=== PATIENT | female | born 1955 | race Caucasian/White ===

== ENCOUNTER 2017-01-29 15:19 | Emergency (ER) | payer OTHER ==
[2017-01-29 15:36] VITALS: RESP 18; TEMP 98.3; O2SAT 98
[2017-01-29] MEDS ORDERED: Sodium Chloride 0.9% 1,000 ML IV STA (16:15)
--- NOTE | 2017-01-29 16:20 | ED PDOC ---
Arrival/HPI - General Chief Complaint: GI Problem Time Seen by Provider: 01/29/17 15:24 Historian: Patient, Family - History of Present Illness Narrative History of Present Illness (Text): 01/29/17 16:05 A 61 year old female, whose past medical history includes diabetes, hypertension , hypothyroidism, presents to the emergency department after vomiting 6 times this morning. The patient states when she woke up this morning she made herself some tea and while drinking the tea she began to throw up. The patient reports she also has nausea, headache, abdominal pain, and feels dizzy. She denies any chest pain, back pain, fever, vision changes, hearing changes, numbness, weakness, diarrhea, or any other complaints at this time. The patient's daughter reports that the patient has had a similar episode in the past, but it was much worse than it is today. Time/Duration: 4-6 hours Symptom Onset: Sudden Symptom Course: Unchanged Activities at Onset: Light Context: Home Past Medical History - Provider Review Nursing Documentation Reviewed: Yes - Infectious Disease Hx of Infectious Diseases: None - Cardiac Hx Cardiac Disorders: Yes Hx Hypertension: Yes - Pulmonary Hx Respiratory Disorders: No - Neurological Hx Neurological Disorder: No - HEENT Hx HEENT Disorder: No - Renal Hx Renal Disorder: No - Endocrine/Metabolic Hx Endocrine Disorders: Yes Hx Diabetes Mellitus Type 2: Yes Hx Hypothyroidism: Yes - Hematological/Oncological Hx Blood Disorders: No - Integumentary Hx Cedeno: No - Musculoskeletal/Rheumatological Hx Falls: No - Gastrointestinal Hx Gastrointestinal Disorders: Yes Hx Colitis: Yes - Genitourinary/Gynecological Hx Genitourinary Disorders: No - Psychiatric Hx Psychophysiologic Disorder: No Hx Substance Use: No - Anesthesia Hx Anesthesia: No Family/Social History - Physician Review Nursing Documentation Reviewed: Yes Family/Social History: No Known Family HX Smoking Status: Never Smoked Hx Alcohol Use: No Hx Substance Use: No Allergies/Home Meds Allergies/Adverse Reactions: Allergies atropine Allergy (Verified 01/29/17 15:35) ANAPHYLAXIS Sulfa (Sulfonamide Antibiotics) Allergy (Verified 01/29/17 15:24) ANAPHYLAXIS Home Medications: Home Meds Medication Instructions Recorded Confirmed Levothyroxine [Synthroid] 75 mcg PO DAILY 01/29/17 01/29/17 Liraglutide [Victoza 3-Bucky] 1.8 mg SQ DAILY 01/29/17 01/29/17 Lisinopril [Zestril] 2.5 mg PO BID 01/29/17 01/29/17 Review of Systems - Physician Review All systems were reviewed & negative as marked: Yes - Review of Systems Constitutional: absent: Fevers Cardiovascular: absent: Chest Pain Gastrointestinal: Abdominal Pain, Nausea, Vomiting. absent: Diarrhea Musculoskeletal: absent: Back Pain Neurological: Headache Physical Exam Vital Signs Reviewed: Yes Vital Signs Temp Pulse Resp BP Pulse Ox 01/29/17 17:02 94 H 18 145/74 98 01/29/17 15:34 98.3 F 100 H 18 148/78 98 Temperature: Afebrile Blood Pressure: Normal Pulse: Tachycardic Respiratory Rate: Normal Appearance: Positive for: Well-Appearing, Non-Toxic, Comfortable Pain Distress: None Mental Status: Positive for: Alert and Oriented X 3 Finger Stick Blood Glucose: 97 - Systems Exam Head: Present: Atraumatic, Normocephalic Pupils: Present: PERRL Extroacular Muscles: Present: EOMI Conjunctiva: Present: Normal Mouth: Present: Dry. No: Normal Lips (dry lips) Neck: Present: Normal Range of Motion Respiratory/Chest: Present: Clear to Auscultation, Good Air Exchange. No: Respiratory Distress, Accessory Muscle Use Cardiovascular: Present: Regular Rate and Rhythm, Normal S1, S2. No: Murmurs Abdomen: Present: Tenderness (epigastric and RUQ tenderness ), Normal Bowel Sounds, Other (patient is actively vomiting; negative Garcia's sign). No: Distention Back: Present: Normal Inspection Upper Extremity: Present: Normal Inspection. No: Cyanosis, Edema Lower Extremity: Present: Normal Inspection. No: Edema Neurological: Present: GCS=15, CN II-XII Intact, Speech Normal Skin: Present: Warm, Dry, Normal Color. No: Rashes Psychiatric: Present: Alert, Oriented x 3, Normal Insight, Normal Concentration Medical Decision Making ED Course and Treatment: 01/29/17 16:21 Impression: A 61 year old female with nausea and vomiting Differential Diagnosis included but are not limited to: Cholecystitis vs Biliary colic vs. Pancreatitis Plan: -- Abdomen Complete Ultrasound -- VBG -- Labs -- Pepcid, Zofran, IV fluids -- Reassess and disposition Progress Notes: 01/29/17 18:40 Abdominal Ultrasound Nurse Practitioner Hospitalist : Eden Currie MD Report Date : 01/29/2017 17:36:02 HISTORY: ruq abd pain r/o cholecystitis COMPARISON: None available. FINDINGS: LIVER:Measures 16.9 cm in sagittal dimension. Echogenic liver may be seen in setting of hepatic parenchymal disease or fatty infiltration. No focal hepatic mass identified. The main portal vein appears patent with normal directional flow. No intrahepatic bile duct dilatation. GALLBLADDER:No gallstones. No gallbladder wall thickening. Negative sonographic Garcia's sign as assessed by the retinal angiographer. COMMON BILE DUCT:Measures 3 mm. PANCREAS:Not well visualized. RIGHT KIDNEY:Measures 10.5 x 5.3 x 5.7cm. No obstructing calculus or hydronephrosis identified. LEFT KIDNEY:Measures 9.9 x 6.3 x 5.5cm. No obstructing calculus or hydronephrosis identified. SPLEEN:Splenectomy. AORTA:Limited views appear unremarkable. IVC:Limited views appear unremarkable. OTHER FINDINGS:None. IMPRESSION: Echogenic liver may be seen in setting of hepatic parenchymal disease or fatty infiltration. Splenomegaly 01/29/17 19:19 Patient on reevaluation felt completely better. She was able to tolerate PO fluids and food. Abdomen is soft, NT, ND, BS x 4. She was walking the ED without any dizziness or lightheadedness. She was given a copy of her US report. She and her daughter state that she has good follow up with her doctor in [place]. She was given Zofran and Zantac Rx on discharged. She was advised to return to the ED if symptoms worsen or any other concern. - Lab Interpretations Lab Results: 01/29/17 16:20 01/29/17 16:20 Lab Results 01/29/17 16:37: pO2 116 H, VBG pH 7.44 H, VBG pCO2 46.0, VBG HCO3 31.2 H, VBG Total CO2 32.6 H, VBG O2 Sat (Calc) 97.3 H, VBG Base Excess 6.1 H, VBG Potassium 3.7, Glucose 94, Lactate 1.1, FiO2 21.0, Sodium 140.0, Chloride 103.0 , Venous Blood Potassium 3.7 01/29/17 16:20: Sodium 140, Potassium 4.3, Chloride 100, Carbon Dioxide 30, Anion Gap 14, BUN 11, Creatinine 0.5 L, Est GFR ( Amer) > 60, Est GFR ( Non-Af Amer) > 60, Random Glucose 98, Calcium 10.0, Total Bilirubin 0.9, AST 35 , ALT 36, Alkaline Phosphatase 61, Total Protein 9.0 H, Albumin 4.4, Globulin 4.6, Albumin/Globulin Ratio 0.9 L, Lipase 192 01/29/17 16:20: PT 14.0 H, INR 1.28 H, APTT 24.3 L 01/29/17 16:20: WBC 12.5 H, RBC 4.92, Hgb 11.1 L, Hct 35.0 L, MCV 71.1 L, MCH 22.6 L, MCHC 31.7, RDW 16.1 H, Plt Count 570 H, MPV 9.5, Gran % 69.4 H, Lymph % (Auto) 23.3, [place] % (Auto) 6.3 H, Eos % (Auto) 0.7 L, Baso % (Auto) 0.3, Gran # 8.70 H, Lymph # 2.9, Cidra # 0.8 H, Eos # 0.1, Baso # 0.04 - RAD Interpretation Radiology Orders: 01/29/17 16:15 ABDOMEN COMPLETE [US] Stat - Medication Orders Current Medication Orders: Discontinued Medications Famotidine (Pepcid) 20 mg IVP STAT STA Stop: 01/29/17 16:16 Last Admin: 01/29/17 16:29 Dose: 20 mg IVP Administration Document 01/29/17 16:29 SE (Rec: 01/29/17 16:29 [id number]) Charges for Administration # of IVP Administrations 1 Sodium Chloride (Sodium Chloride 0.9%) 1,000 mls @ 1,000 mls/hr IV .Q1H STA Stop: 01/29/17 17:14 Last Admin: 01/29/17 16:29 Dose: 1,000 mls/hr eMAR Start Stop Document 01/29/17 16:29 SE (Rec: 01/29/17 16:29 [id number]) Intravenous Solution Start Date 01/29/17 Start Time 16:29 Ondansetron HCl (Zofran Inj) 4 mg IVP STAT STA Stop: 01/29/17 16:16 Last Admin: 01/29/17 16:29 Dose: 4 mg IVP Administration Document 01/29/17 16:29 SE (Rec: 01/29/17 16:29 SE [id number]) Charges for Administration # of IVP Administrations 1 - Scribe Statement The provider has reviewed the documentation as recorded by the Scribe Lucy Mittal Provider Scribe Attestation: All medical record entries made by the Scribe were at my direction and personally dictated by me. I have reviewed the chart and agree that the record accurately reflects my personal performance of the history, physical exam, medical decision making, and the department course for this patient. I have also personally directed, reviewed, and agree with the discharge instructions and disposition. Disposition/Present on Arrival - Present on Arrival Any Indicators Present on Arrival: No History of DVT/PE: No History of Uncontrolled Diabetes: No Urinary Catheter: No History of Decub. Ulcer: No History Surgical Site Infection Following: None - Disposition Have Diagnosis and Disposition been Completed?: Yes Diagnosis: Vomiting, Abdominal pain Disposition: HOME/ ROUTINE Disposition Time: 19:19 Patient Plan: Discharge Condition: IMPROVED Discharge Instructions (ExitCare): Acute Nausea and Vomiting (ED), Acute Abdominal Pain (ED) Additional Instructions: Ms Calix, thank you for letting us take care of you today. Your provider was Dr. Lyons. You were treated for Abdominal Pain, Vomiting. The emergency medical care you received today was directed at your acute symptoms. If you were prescribed any medication, please fill it and take as directed. It may take several days for your symptoms to resolve. Return to the Emergency Department if your symptoms worsen, do not improve, or if you have any other problems. Please contact your doctor or call one of the physicians/clinics you have been referred to that are listed on the Patient Visit Information form that is included in your discharge packet. Bring any paperwork you were given at discharge with you along with any medications you are taking to your follow up visit. Our treatment cannot replace ongoing medical care by a primary care provider (PCP) outside of the emergency department. Thank you for allowing the [facility] team to be part of your care today. If you had an X-Ray or CT scan: A Radiologist will review the ED reading if any change in treatment is needed we will contact you. If you had a blood, urine, or wound culture: It will take several days for the results, if any change in treatment is needed we will contact you. If you had an STI test: It will take 48 hours for the results. Please call after 1 week if you have not heard back. Prescriptions: Ondansetron ODT [Zofran ODT] 4 mg PO Q6 #20 odt Ranitidine HCl [Zantac] 150 mg PO BID PRN #30 tablet PRN Reason: Pain, Mild (1-3) [facility] - Follow up with primary Forms: [facility] (Georgian), WORK NOTE
[2017-01-29 16:41] LABS: VENOUS BLOOD GAS BASE EXCESS 6.1 mmol/L (0.0-2.0); VENOUS BLOOD PH 7.44 (7.32-7.43)
[2017-01-29 16:44] LABS: ALKALINE PHOSPHATASE 61 U/L (38-126); ALT/SGPT 36 U/L (7-56); AST/SGOT 35 U/L (14-36); BILIRUBIN,TOTAL 0.9 mg/dL (0.2-1.3); BLOOD UREA NITROGEN 11 mg/dL (7-21); CARBON DIOXIDE 30 mmol/L (21-33); CHLORIDE 100 mmol/L (98-107); GFR AFRICAN-AMERICAN > 60; GLUCOSE,RANDOM 98 mg/dL (70-110); LIPASE 192 U/L (23-300); POTASSIUM 4.3 mmol/L (3.6-5.0); SODIUM 140 mmol/L (132-148)
[2017-01-29 16:45] LABS: ALB/GLOB RATIO 0.9 (1.1-1.8)
[2017-01-29 16:51] LABS: BASO # 0.04 K/mm3 (0.0-2.0); BASO % 0.3 % (0.0-3.0); EOS # 0.1 (0.0-0.7); EOS % 0.7 % (1.5-5.0); GRAN # 8.7 (1.4-6.5); GRAN % 69.4 % (50.0-68.0); LYMPH # 2.9 (1.2-3.4); LYMPH % 23.3 % (22.0-35.0); MEAN CELL VOLUME 71.1 fl (80.0-105.0); MEAN CORPUSCULAR HEMOGLOBIN 22.6 pg (25.0-35.0); MEAN CORPUSCULAR HGB CONC 31.7 g/dl (31.0-37.0); MEAN PLATELET VOLUME 9.5 fl (7.0-11.0); MONO # 0.8 (0.1-0.6); MONO % 6.3 % (1.0-6.0); RED CELL DISTRIBUTION WIDTH 16.1 % (11.5-14.5); WHITE BLOOD COUNT 12.5 10^3/ul (4.5-11.0)
[2017-01-29 17:01] LABS: INR 1.28 (0.93-1.08); PARTIAL THROMBOPLASTIN TIME 24.3 Seconds (25.1-36.5)
[2017-01-29 17:02] VITALS: BP 145/74; PULSE 94
--- NOTE | 2017-01-29 17:37 | US ---
HISTORY: ruq abd pain r/o cholecystitis COMPARISON: None available. TECHNIQUE: Sonographic evaluation of the abdomen. FINDINGS: LIVER: Measures 16.9 cm in sagittal dimension. Echogenic liver may be seen in setting of hepatic parenchymal disease or fatty infiltration. No focal hepatic mass identified. The main portal vein appears patent with normal directional flow. No intrahepatic bile duct dilatation. GALLBLADDER: No gallstones. No gallbladder wall thickening. Negative sonographic Garcia's sign as assessed by the watcher automat long goods. COMMON BILE DUCT: Measures 3 mm. PANCREAS: Not well visualized. RIGHT KIDNEY: Measures 10.5 x 5.3 x 5.7cm. No obstructing calculus or hydronephrosis identified. LEFT KIDNEY: Measures 9.9 x 6.3 x 5.5cm. No obstructing calculus or hydronephrosis identified. SPLEEN: Splenectomy. AORTA: Limited views appear unremarkable. IVC: Limited views appear unremarkable. OTHER FINDINGS: None. IMPRESSION: Echogenic liver may be seen in setting of hepatic parenchymal disease or fatty infiltration. Splenomegaly
== END 2017-01-29 19:19 | disposition home or self-care (01) ==
LOC: ED 15:19
DX: R10.9 Unspecified abdominal pain (principal); R11.10 Vomiting, unspecified; E11.9 Type 2 diabetes mellitus without complications; I10 Essential (primary) hypertension; E03.9 Hypothyroidism, unspecified; Z88.2 Allergy status to sulfonamides
CPT/HCPCS: 76700; 80053; 82803; 83690; 85025; 85610; 85730; 96374; 96375; 99285; J2405; J7040

== ENCOUNTER 2018-01-07 12:56 | Emergency (ER) | payer MEDICAID, OTHER ==
[2018-01-07] MEDS ORDERED: Albuterol-Ipratrop 3 mg / 0.5 (3 ml) UD IH STA (13:35)
[2018-01-07] MEDS ORDERED: guaiFENesin 200 mg/10 ml Syrup UD PO ONE (13:36)
[2018-01-07 13:37] VITALS: RESP 18
--- NOTE | 2018-01-07 13:47 | ED PDOC ---
Arrival/HPI - General Chief Complaint: Flu-like Symptoms Time Seen by Provider: 01/07/18 13:15 Historian: Patient - History of Present Illness Narrative History of Present Illness (Text): 62 y/o F w/ PMH of diabetes, hypertension, hypothyroidism, presenting to the emergency department for further evaluation of worsening cough. She notes that she has had a dry cough for the past 10 days with subjective fevers and gradual onset of a global headache. She was seen by a doctor yesterday who prescribed her antihistamines and cough suppressants which had been minimally responsive in alleviating her symptoms. The patient denies chills, dizziness, chest pain, dyspnea on exertion, abdominal pain, nausea, diarrhea, back pain, neck pain, urinary/bowel changes, or any other complaint. *Patient is primarily Korean speaking and is using her son as a ship carpenter for the encounter* Time/Duration: Other (10 Days) Symptom Onset: Gradual Symptom Course: Worsening Activities at Onset: Rest, Light Context: Home Past Medical History - Provider Review Nursing Documentation Reviewed: Yes - Travel History Have you recently traveled outside [place] w/in the past 3 mons?: No - Infectious Disease Hx of Infectious Diseases: None - Cardiac Hx Cardiac Disorders: Yes Hx Hypertension: Yes - Pulmonary Hx Respiratory Disorders: No - Neurological Hx Neurological Disorder: No - HEENT Hx HEENT Disorder: No - Renal Hx Renal Disorder: No - Endocrine/Metabolic Hx Endocrine Disorders: Yes Hx Diabetes Mellitus Type 2: Yes Hx Hypothyroidism: Yes - Hematological/Oncological Hx Blood Disorders: No - Integumentary Hx Cedeno: No - Musculoskeletal/Rheumatological Hx Falls: No - Gastrointestinal Hx Gastrointestinal Disorders: Yes Hx Colitis: Yes - Genitourinary/Gynecological Hx Genitourinary Disorders: No - Psychiatric Hx Psychophysiologic Disorder: No Hx Substance Use: No - Anesthesia Hx Anesthesia: No Family/Social History - Physician Review Nursing Documentation Reviewed: Yes Family/Social History: No Known Family HX Smoking Status: Never Smoked Hx Alcohol Use: No Hx Substance Use: No Allergies/Home Meds Allergies/Adverse Reactions: Allergies atropine Allergy (Verified 01/29/17 15:35) ANAPHYLAXIS Sulfa (Sulfonamide Antibiotics) Allergy (Verified 01/29/17 15:24) ANAPHYLAXIS Home Medications: Home Meds Medication Instructions Recorded Confirmed Levothyroxine [Synthroid] 75 mcg PO DAILY 01/29/17 01/29/17 Liraglutide [Victoza 3-Bucky] 1.8 mg SQ DAILY 01/29/17 01/29/17 Lisinopril [Zestril] 2.5 mg PO BID 01/29/17 01/29/17 Review of Systems - Physician Review All systems were reviewed & negative as marked: Yes - Review of Systems Constitutional: Fevers Respiratory: SOB, Cough Cardiovascular: absent: Chest Pain Gastrointestinal: absent: Stool Changes, Diarrhea, Nausea Genitourinary Female: absent: Urine Output Changes Musculoskeletal: Myalgias. absent: Back Pain, Neck Pain Neurological: Headache. absent: Dizziness Physical Exam Vital Signs Reviewed: Yes Vital Signs Temp Pulse Resp BP Pulse Ox 01/07/18 13:28 99.3 F 123 H 18 122/74 96 Temperature: Afebrile Blood Pressure: Normal Pulse: Tachycardic Respiratory Rate: Normal Appearance: Positive for: Well-Appearing, Non-Toxic, Comfortable Pain Distress: None Mental Status: Positive for: Alert and Oriented X 3 - Systems Exam Head: Present: Atraumatic, Normocephalic Pupils: Present: PERRL Extroacular Muscles: Present: EOMI Conjunctiva: Present: Normal Mouth: Present: Moist Mucous Membranes Neck: Present: Normal Range of Motion Respiratory/Chest: Present: Decreased Breath Sounds (Diminished breath sounds bilaterally.). No: Clear to Auscultation (Coarse sound heard in right lung base) Cardiovascular: Present: Regular Rate and Rhythm, Normal S1, S2, Tachycardic. No: Murmurs Abdomen: No: Tenderness, Distention, Peritoneal Signs Back: Present: Normal Inspection Upper Extremity: Present: Normal Inspection. No: Cyanosis, Edema Lower Extremity: Present: Normal Inspection. No: Edema Neurological: Present: GCS=15, CN II-XII Intact, Speech Normal Skin: Present: Warm, Dry, Normal Color. No: Rashes Psychiatric: Present: Alert, Oriented x 3, Normal Insight, Normal Concentration Medical Decision Making ED Course and Treatment: 01/07/18 13:49 Impression: A 62 year old female presents to the emergency department for further evaluation of 10 day duration, worsening, dry cough. Differential Diagnosis included but are not limited to: Bronchitis Community acquired PNA Viral pharyngitis Plan: -- Chest X-ray -- Duonebs -- Robitussin --SOLU- Medrol -- Rapid Flu -- Reassess and disposition Prior Visits: Notes and results from previous visits were reviewed. Progress Notes: 01/07/18 14:34 Rapid flu negative with no infiltrates seen on CXR. Patient's daughter at the bedside states patient feels a little better and requests Tylenol with Codeine a s a cough suppressant. Patient noted to have feelings of nausea. Zofran ordered. 01/07/18 16:00 Patient reassessed and has marked improvement in pulmonary exam. Patient advised to follow up with modern and contemporary art curator and PCP. Scripts given. She is stable for discharge. - RAD Interpretation Narrative RAD Interpretations (Text): 01/07/18 16:30 Procedure: Chest X-ray Impression: No active disease. Dictator: Luis Martinez MD Radiology Orders: 01/07/18 13:35 CHEST PORTABLE [RAD] Stat Store Clerk Cashier: Radiologist - Medication Orders Current Medication Orders: Discontinued Medications Albuterol/Ipratropium (Duoneb 3 Mg/0.5 Mg (3 Ml) Ud) 3 ml IH STAT STA Stop: 01/07/18 13:36 Guaifenesin (Robitussin) 200 mg PO ONCE ONE Stop: 01/07/18 13:37 Methylprednisolone (Solu-Medrol) 125 mg IVP STAT STA Stop: 01/07/18 13:36 - Scribe Statement Miladys Vickers Provider Scribe Attestation: All medical record entries made by the Scribe were at my direction and personally dictated by me. I have reviewed the chart and agree that the record accurately reflects my personal performance of the history, physical exam, medical decision making, and the department course for this patient. I have also personally directed, reviewed, and agree with the discharge instructions and disposition. Disposition/Present on Arrival - Present on Arrival Any Indicators Present on Arrival: No History of DVT/PE: No History of Uncontrolled Diabetes: No Urinary Catheter: No History Surgical Site Infection Following: None - Disposition Have Diagnosis and Disposition been Completed?: Yes Diagnosis: Acute viral bronchitis Disposition: HOME/ ROUTINE Disposition Time: 15:07 Patient Plan: Discharge Patient Problems: Current Active Problems Problem Status Onset Acute viral bronchitis Acute Condition: IMPROVED Discharge Instructions (ExitCare): Acute Bronchitis, Adult (DC) Additional Instructions: All medical record entries made by the Scribe were at my direction and personally dictated by me. I have reviewed the chart and agree that the record accurately reflects my personal performance of the history, physical exam, medical decision making, and the department course for this patient. I have also personally directed, reviewed, and agree with the discharge instructions and disposition. Prescriptions: Albuterol HFA [Ventolin HFA 90 mcg/actuation (8 g)] 2 puff IH [id number] #60 puff Acetaminophen/Codeine [Tylenol/Codeine elixir] 12.5 ml PO Q6H #25 ml Albuterol 0.083% [Albuterol 0.083% Inhal Radha (2.5 mg/3 ml) UD] 2.5 mg IH Q6H #6 neb guaiFENesin/Codeine [Codeine/Guaifenesin 10 MG/5 Ml-100 MG/5 Ml 5] 15 ml PO Q6H #50 ml Ipratropium 0.02% [Atrovent] 0.5 mg IH Q8H #60 neb Methylprednisolone [Medrol Dose Pack (21 tabs)] 4 mg PO DAILY #21 mg Referrals: Fede Morrison MD [Primary Care Provider] - Follow up with primary Flako Dalton MD [Staff Provider] - Follow up with primary Forms: [employer] (Swazi)
--- NOTE | 2018-01-07 15:21 | RAD ---
Date of service: 01/07/2018 HISTORY: sob COMPARISON: No prior. FINDINGS: LUNGS: No active pulmonary disease. PLEURA: No significant pleural effusion identified, no pneumothorax apparent. CARDIOVASCULAR: Aortic calcification Normal cardiac size. No pulmonary vascular congestion. OSSEOUS STRUCTURES: No significant abnormalities. VISUALIZED UPPER ABDOMEN: Normal. OTHER FINDINGS: None. IMPRESSION: No active disease.
[2018-01-07 18:21] VITALS: BP 126/69; PULSE 90; TEMP 99.1; O2SAT 97
--- NOTE | 2018-01-08 08:10 | CARD ---
APPROVED REPORT Date of service: 01/07/2018 EKG Measurement Heart [id number] <Conclusion> Sinus tachycardia Otherwise normal ECG
== END 2018-01-07 15:57 | disposition home or self-care (01) ==
LOC: ED 12:56
DX: J20.9 Acute bronchitis, unspecified (principal); I10 Essential (primary) hypertension; E11.9 Type 2 diabetes mellitus without complications; E03.9 Hypothyroidism, unspecified
CPT/HCPCS: 71045; 87804; 93005; 96374; 96375; 99283; J2405; J2930